=== PATIENT | male | born 1995 ===

== ENCOUNTER 2024-04-03 09:26 | Emergency (ER) | payer BC, SELFPAY ==
--- NOTE | ~2024-04-03 | XR_ITS ---
EXAMINATION: XR CHEST CLINICAL INFORMATION: cough COMPARISON: None available. TECHNIQUE: 2 views of the chest were obtained. FINDINGS: The cardiac, hilar, and mediastinal contours are normal. The lungs are clear bilaterally. There is no pneumothorax or pleural effusion. There is no focal osseous or soft tissue abnormality. XR/XR chest 2V IMPRESSION: Normal chest. Electronically signed by: Phil De La Vega MD 04/03/2024 12:02 PM [facility]
[2024-04-03 09:39] VITALS: BP 150/91; PULSE 92; RESP 16; TEMP 36.1; O2SAT 98; BMI 38.4
[2024-04-03 10:31] LABS: Influenza A PCR NEGATIVE (Negative); Influenza B PCR NEGATIVE (Negative); Resp Syncy Virus RNA Qual PCR NEGATIVE (Negative); SARS COV2 PCR INHOUSE NEGATIVE (Negative)
--- NOTE | 2024-04-03 11:28 | ED_ITS ---
HPI - General Adult General Chief complaint: Upper Respiratory Symptoms Stated complaint: Congestion, headache Time Seen by Provider: 04/03/24 11:36 Source: patient and RN notes reviewed Mode of arrival: ambulatory Limitations: no limitations History of Present Illness ED Provider: Anna Veliz PA-C HPI narrative: This is a 28-year-old male who presents emergency department for evaluation of congestion, cough, facial pressure, and subjective fevers and chills for the last 5 days. Patient denies any chest pain, shortness for breath, abdominal pain, nausea, vomiting or diarrhea. Denies any sick contacts. He has been taking [id number] TheraFlu, and cold medications without any relief. No other complaints or concerns at this time. MD complaint: Facial pain, congestion, cough Onset (ago): day(s) Relieving factors: none Exacerbating factors: none Associated symptoms: denies other symptoms Treatments prior to arrival: none Related Data Previous Rx's ?Medication ?Instructions ?Recorded azithromycin 250 mg tablet See Rx Instructions PO .COMPLEX #6 04/03/24 tabs Allergies Allergy/AdvReac Type Severity Reaction Status Date / Time No Known Allergies Allergy Verified 04/03/24 09:41 Review of Systems Review of Systems: Yes all other systems are reviewed and are negative Constitutional: Constitutional: Reports as per HPI Physical Exam ED Vital Signs: Vital Signs - 24 hr 04/03/24 09:39 04/03/24 12:51 04/03/24 13:16 Temperature 97 F 98.3 F 98.3 F Pulse Rate 92 74 74 Respiratory Rate 16 18 18 Blood Pressure 150/91 H 119/81 119/81 Pulse Oximetry 98 96 96 Oxygen Delivery Method Room Air Room Air Room Air BMI result Body Mass Index 38.4 Const General: cooperative, comfortable and no acute distress Orientation/consciousness: patient oriented x3 Limitations: no limitations HENMT Other: Patient with exquisite tenderness palpation along the frontal, maxillary, and ethmoid sinuses Head: Yes normal to inspection, Yes normocephalic and Yes atraumatic Ears: hearing grossly normal bilaterally and TM's normal bilaterally General nose exam: Normal external nose present Face and sinus: Yes normal facial exam Mouth: Normal oral and palatal mucosa present, oropharynx normal and moist mucous membranes Throat: Yes posterior oropharynx normal Eyes General: appearance normal, both eyes and all related structures Eyelids: Yes eyelids normal Conjunctivae: conjunctivae normal Sclerae: sclerae normal Pupils: Equal, round and reactive pupils present EOM: EOMs intact bilaterally Neck Neck: Yes normal visual inspection, Yes full ROM and Yes no lymphadenopathy Lymphatic: no lymphadenopathy noted Chest Chest palpation & inspection: normal inspection of the chest Resp Effort & Inspection: normal respiratory effort and able to speak in complete sentences Auscultation: clear to auscultation bilaterally, no crackles, no rales, no rhonchi and no wheezes Cardio Rate: regular rate Rhythm: regular rhythm Heart sounds: S1 normal heart sound present and S2 normal heart sound present GI Inspection: Yes normal to inspection Skin General skin exam: no rashes or lesions noted Trauma: no lacerations or abrasions Wounds: no wounds Neuro General: patient oriented x3 and moves all extremities Cranial nerves: Yes Equal, round and reactive pupils present Extrem General: Yes normal to inspection Right upper extremity: normal to inspection Left upper extremity: normal to inspection Right lower extremity: normal to inspection Left lower extremity: normal to inspection Medical Decision Making Medical Decision Making [facility] Narrative: This is a 28-year-old male, with no known medical problems, who presents emergency department with complaints of congestion, cough, facial pressure, and subjective fevers and chills for the last 5 days. On arrival, blood pressure mildly elevated 150/91, all other vital signs within normal limits. He is speaking full sentences under no acute distress, lungs are clear to auscultation bilaterally. He does have maxillary, frontal, and ethmoid sinus tenderness on examination. Chest x-ray unremarkable Viral swabs were obtained, are negative. Will treat as acute sinusitis. Given azithromycin, given strict return precautions. He understands agrees with plan. Patient stable for discharge Differential Diagnosis Differential Diagnoses: The differential diagnosis associated with the presentation includes Sinusitis, URI, pneumonia, COVID Lab Data [facility] Lab Attestation statement: I reviewed the patient's lab results. Negative Labs: Lab Results 04/03/24 Range/Units 09:47 Influenza Type A (PCR) NEGATIVE (Negative) Influenza Type B (PCR) NEGATIVE (Negative) RSV RNA Qual (PCR) NEGATIVE (Negative) SARS-CoV-2 RNA (RT-PCR) NEGATIVE (Negative) Radiology Impression Discussion of test interpretation with radiology: I have reviewed the radiologist's reading. Radiologist Impression: EXAMINATION: XR CHEST CLINICAL INFORMATION: cough COMPARISON: None available. TECHNIQUE: 2 views of the chest were obtained. FINDINGS: The cardiac, hilar, and mediastinal contours are normal. The lungs are clear bilaterally. There is no pneumothorax or pleural effusion. There is no focal osseous or soft tissue abnormality. XR/XR chest 2V IMPRESSION: Normal chest. Electronically signed by: Phil De La Vega MD 04/03/2024 12:02 PM [facility] [place]ict[place] By: Phil De La Vega MD Discharge Plan Discharge Clinical Impression: Sinusitis Patient Disposition: Home, Self-Care Instructions: Sinusitis (ED) Additional Instructions: You were seen in the emergency department due to cough, congestion, and facial pressure. You tested negative for COVID, flu, and RSV. Your chest x-ray does not show a pneumonia. Please alternate between ibuprofen and or Tylenol as needed for pain and fevers. You have a sinus infection that is causing you to have the symptoms. Please take azithromycin, this is an antibiotic, as prescribed. Finish the entire course even if your symptoms improve. If any new or worsening symptoms occur including but not limited to severe chest pain, shortness of breath, please seek emergent care. Prescriptions: New azithromycin 250 mg tablet See Rx Instructions .ROUTE .COMPLEX Qty: 6 0RF Rx Instructions: For 250 mg dose pack: take 500 mg today (day 1), then 250 mg for 4 days (days 2-5) Stand Alone Forms: Work/School Release Interventions: ED Discharge Assessment Last Done: 04/03/24 13:16 Discharge Date/Time: 04/03/24 13:16 Print Language: German
[2024-04-03 12:51] VITALS: BP 119/81; PULSE 74; RESP 18; TEMP 36.8; O2SAT 96
[2024-04-03 13:16] VITALS: BP 119/81; PULSE 74; RESP 18; TEMP 36.8; O2SAT 96
== END 2024-04-03 13:16 | disposition home or self-care (01) ==
PROVIDERS: Emergency Provider Emergency Medicine
DX: J32.8 Other chronic sinusitis (principal); R05.9 Cough, unspecified; Z03.818 Encounter for observation for suspected exposure to other biological agents ruled out
CPT/HCPCS: 0241U; 71046; 99282; 99283

== ENCOUNTER → 2024-04-03 11:35 | Outpatient (BNV) | payer BC, SELFPAY | PROVIDERS: Emergency Provider Emergency Medicine; Visit Provider Radiology Diagnostic Radiology | DX: R05.9 Cough, unspecified (principal) | CPT/HCPCS: 71046 ==